=== PATIENT | female | born 1990 | race Caucasian/White ===

== ENCOUNTER 2018-01-28 15:18 | Inpatient (IN) | payer BC ==
[~2018-01-28] VITALS: Ht 167.6 cm; Wt 82.7 kg
[~2018-01-28 15:18] MED LIST: FERROUS SU325 MG/TAB PO; IBU800 M1 PO; PERCOCET 325 MG1 TA2 PO; PRENATAL 191 TAB PO
[2018-02-25] VITALS (34 sets, daily range): BP systolic 100–132; BP diastolic 54–81; PULSE 63–96; TEMP 97.5–98.5
[2018-02-25 08:19] LABS: BASO # 0.1 (0.0-0.2); BASO % 0.7 % (0.0-2.0); EOS # 0.1 (0.0-0.7); EOS % 0.8 % (0-4.0); GRAN # 8.4 (1.4-6.5); GRAN % 69.1 % (42.2-75.2); HEMOGLOBIN 12.1 g/dl (12.5-16.0); LYMPH # 2.4 (1.2-3.4); LYMPH % 19.5 % (20.0-51.0); MEAN CELL VOLUME 87 fl (80.0-100.0); MEAN CORPUSCULAR HEMOGLOBIN 29 pg (27.0-31.0); MEAN CORPUSCULAR HGB CONC 33 g/dl (33.0-37.0); MEAN PLATELET VOLUME 10.1 fl (7.4-10.4); MONO % 8.5 % (1.7-9.3); PLATELET COUNT 356 K/mm3 (130-400); RED BLOOD COUNT 4.17 M/mm3 (4.10-5.30); REDCELL DISTRIBUTION WIDTH-CV 14.6 % (11.5-14.5)
[2018-02-25 08:22] LABS: HEMATOCRIT 36.4 % (37.0-47.0)
[2018-02-26 07:42] LABS: HEMATOCRIT 40.7 % (37.0-47.0); HEMOGLOBIN 13.4 g/dl (12.5-16.0)
[2018-02-26 07:55] VITALS: BP 113/74; PULSE 74; TEMP 98
[2018-02-26] MEDS ORDERED: IBU600 MG PO (09:18)
[2018-02-26 12:10] VITALS: BP 105/65; PULSE 71; TEMP 98.2
[2018-02-26 16:00] VITALS: BP 109/70; PULSE 72; TEMP 98.1
== END 2018-02-26 16:30 | disposition home or self-care (01) | DRG 774 ==
LOC: LDR 02-25 06:58 → OB 02-25 15:45 → EDSTATUS 03-05 10:21 → LDRO 03-05 15:16
PROVIDERS: Obstetrics & Gynecology
PROC: 10E0XZZ Delivery of Products of Conception, External Approach (ICD-10-PCS; principal; 2018-02-25)
PROC: 0HQ9XZZ Repair Perineum Skin, External Approach (ICD-10-PCS; 2018-02-25)
PROC: 3E033VJ Introduction of Other Hormone into Peripheral Vein, Percutaneous Approach (ICD-10-PCS; 2018-02-25)
PROC: 10907ZC Drainage of Amniotic Fluid, Therapeutic from Products of Conception, Via Natural or Artificial Opening (ICD-10-PCS; 2018-02-25)
DX: O76 Abnormality in fetal heart rate and rhythm complicating labor and delivery (principal); O72.1 Other immediate postpartum hemorrhage; O69.81X0 Labor and delivery complicated by cord around neck, without compression, not applicable or unspecified; O70.9 Perineal laceration during delivery, unspecified; Z3A.39 39 weeks gestation of pregnancy; Z37.0 Single live birth
CPT/HCPCS: J2210; J2590; J7120

== ENCOUNTER 2022-04-27 18:30 | Inpatient (IN) | payer BC ==
[~2022-04-27] VITALS: Ht 167.6 cm; Wt 92.7 kg
[~2022-04-27 18:30] MED LIST changes: +IBU600 MG PO
[2022-05-03] VITALS (48 sets, daily range): BP systolic 103–136; BP diastolic 54–89; PULSE 72–95; TEMP 97.5–98.5
[2022-05-03 07:05] LABS: HEMOGLOBIN 10.7 g/dl (12.5-16.0); MEAN CELL VOLUME 89 fl (80.0-100.0); MEAN CORPUSCULAR HEMOGLOBIN 29 pg (27-31); MEAN CORPUSCULAR HGB CONC 33 g/dl (33.0-37.0); MEAN PLATELET VOLUME 10.3 fl (7.4-10.4); PLATELET COUNT 422 K/mm3 (130-400); RED BLOOD COUNT 3.64 M/mm3 (4.10-5.30); REDCELL DISTRIBUTION WIDTH-CV 14.4 % (11.5-14.5)
[2022-05-03 07:10] LABS: HEMATOCRIT 32.4 % (37.0-47.0)
[2022-05-03 07:29] LABS: ALBUMIN 2.9 gm/dL (3.5-5.0); BILIRUBIN,TOTAL 0.2 mg/dL (0.2-1.2); CALCIUM 9.8 mg/dL (8.4-10.2); CREATININE, serum 0.57 mg/dL (0.57-1.11); POTASSIUM 3.5 mmol/L (3.5-4.5); TOTAL PROTEIN 6.2 gm/dL (6.2-8.1)
[2022-05-03 07:36] LABS: EOSINOPHIL 2 % (0-4); LYMPHOCYTE 17 % (20.0-51.0); NEUTROPHILS 73 % (42.0-75.2)
[2022-05-03 07:37] LABS: PLATELET ESTIMATE INCREASED (NORMAL)
[2022-05-03 07:39] LABS: ANISOCYTOSIS 1+
[2022-05-03] MEDS ORDERED: CLARITIN 1010 MG/TAB PO (08:23)
[2022-05-03] MEDS ORDERED: SINGULAIR 110 MG/TAB PO (08:23)
[2022-05-03] MEDS ORDERED: NORMODYNE100 MG PO (08:24)
--- NOTE | 2022-05-03 08:55 | NUR ---
0615 PATIENT ARRIVED ON THE UNIT AND ASKED TO UNDRESS AND PLACE GOWN ON. 06 PATIENT PLACED ON EXTERNAL MONITORS AND VITALS TAKEN AND STABLE. 0650 IV PLACED IN LEFT WRIST ADMISSION QUESTIONS AND ASSESSMENT COMPLETED 727 SVE /-3 0739 PITOCIN STARTED AFTER PATIENT RETURNED FROM RESTROOM 08 MD AT BEDSIDE TO GO OVER PLAN OF CARE 08 AROM CLEARS AND SVE OF /-3 WILL CONTINUE TO INCREASE PITOCIN FHR ALLOWS
--- NOTE | 2022-05-03 12:37 | NUR ---
NOTIFIED MD PATIENT IS BEING PRELOADED FOR EPIDURAL AND NOW ON 20 MU/MIN OF PITOCIN. STATED IT IS OKAY TO GO UP TO 30 MU/MIN OF PITOCIN PATIENT CURRENTLY ON SIDE WITH PEANUT BALL IN USE
--- NOTE | 2022-05-03 14:37 | NUR ---
1255 PATIENT ASSISTED TO BATHROOM 1300 PATIENT SAT ON SIDE OF BED FOR EPIDURAL. ANESTHESIA AT THE BEDSIDE. PITOCIN PAUSED. 1310 SINGLE SHOT GIVEN 1318 PROCEDURE OVER PATIENT ASSITED TO LAY BACK. 1320 PITOCIN RESTARTED, BABY PLACED BACK ON MONITOR.
--- NOTE | 2022-05-03 20:06 | NUR ---
1950 SVE PT COMPLETE 1950 DR NICKERSON NOTIFIED TO COME FOR DELIVERY 2002 DR NICKERSON HERE PT POSITIONED TO SEMI-FOWLERS WITH FOOTRESTS, PT PUSHING 2005 BABY DELIVERED OVER INTACT PERINEUM, PERIURETHRAL LAC WITH REPAIR 2008 PLACENTA DELIVERED INTACT, PITOCIN BOLUS STARTED VIA PUMP. 2014 EPIDURAL PUMP TURNED OFF
[2022-05-03] MEDS ORDERED: MOTRIN 800800 MG/TAB PO (21:13)
[2022-05-04 00:45] VITALS: BP 122/65; PULSE 78; TEMP 97.7
[2022-05-04 05:00] VITALS: BP 122/68; PULSE 72; TEMP 98.3
[2022-05-04 08:30] VITALS: BP 114/66; PULSE 81; TEMP 97.3
[2022-05-04 13:00] VITALS: BP 120/74; PULSE 76; TEMP 97.7
[2022-05-04 16:49] VITALS: BP 125/75; PULSE 79; TEMP 98.1
[2022-05-04 20:00] VITALS: BP 119/65; PULSE 60; TEMP 98.8
[2022-05-05 07:45] VITALS: BP 122/71; PULSE 70; TEMP 97.7
== END 2022-05-05 10:20 | disposition home or self-care (01) | DRG 807 ==
LOC: LDR 05-03 06:07 → OB 05-03 06:07 → LDR 05-03 18:29 → OB 05-04 03:55
PROVIDERS: ADMIT Obstetrics & Gynecology
PROC: 10E0XZZ Delivery of Products of Conception, External Approach (ICD-10-PCS; principal; 2022-05-03)
PROC: 0UQMXZZ Repair Vulva, External Approach (ICD-10-PCS; 2022-05-03)
PROC: 10907ZC Drainage of Amniotic Fluid, Therapeutic from Products of Conception, Via Natural or Artificial Opening (ICD-10-PCS; 2022-05-03)
PROC: 3E033VJ Introduction of Other Hormone into Peripheral Vein, Percutaneous Approach (ICD-10-PCS; 2022-05-03)
DX: O14.94 Unspecified pre-eclampsia, complicating childbirth (principal); Z37.0 Single live birth; O99.02 Anemia complicating childbirth; D64.9 Anemia, unspecified; O99.62 Diseases of the digestive system complicating childbirth; K21.9 Gastro-esophageal reflux disease without esophagitis; O70.0 First degree perineal laceration during delivery; O71.82 Other specified trauma to perineum and vulva; Z3A.37 37 weeks gestation of pregnancy
CPT/HCPCS: J2590; J7120